=== PATIENT | male | born 1970 ===

== ENCOUNTER 2017-06-10 05:37 | Day surgery (SDC) | payer OTHER ==
[2017-06-10] MEDS ORDERED: PERCOCET 5-3251 EACH PO (10:02)
[2017-06-10] MEDS ORDERED: NEURONTIN300 MG PO (10:04)
[2017-06-10] MEDS ORDERED: MIRALAX17 GM PO (10:05)
== END 2017-06-10 12:45 | disposition home or self-care (01) ==
LOC: CIR.AMB 05:37
DX: K40.90 Unilateral inguinal hernia, without obstruction or gangrene, not specified as recurrent (principal)